=== PATIENT | male | born 1995 | race Caucasian/White ===

== ENCOUNTER 2017-03-24 19:13 | Emergency (ER) | payer BC, OTHER ==
[~2017-03-24] VITALS: Ht 180.3 cm; Wt 74.0 kg
[~2017-03-24 19:13] MED LIST: [UNRECOGNIZED DRUG - CODE] PO
[2017-03-24 19:23] VITALS: TEMP 37; Ht 180.3 cm; Wt 74.0 kg
[2017-03-24] MEDS ORDERED: ONDANSETRON INJ 2 MG/ML 2 ML VIAL IV STA (19:26)
[2017-03-24] MEDS ORDERED: SODIUM CHLORIDE 0.9% 1000ML 1,000 ML IV STA (19:26)
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
[2017-03-24] MEDS ORDERED: MoRPHine SULFATE 4 MG/ML 1 ML CARP\\VIAL IV PRN (19:30)
[2017-03-24 19:41] LABS: BASO % 0.3 %; BASO ABS # 0.03 K/uL (0-0.2); EOS % 0.3 %; EOS ABS # 0.03 K/uL (0-0.5); HEMATOCRIT 48.6 % (42-52); HEMOGLOBIN 17.4 g/dL (14.0-18.0); IG# 0.03 K/uL (0.00-0.02); LYMPH % 19.7 %; LYMPH ABS # 1.73 K/uL (1.2-3.4); MEAN CELL VOLUME 85.9 fL (80-100); MEAN CORPUSCULAR HEMOGLOBIN 30.7 pg (25-34); MEAN CORPUSCULAR HGB CONC 35.8 g/dl (32-36); MEAN PLATELET VOLUME 11.4 fL (7.4-10.4); MONO % 8.3 %; MONO ABS # 0.73 K/uL (0.11-0.59); NEUT % 71.1 %; NEUT ABS # 6.21 K/uL (1.4-6.5); PLATELET COUNT 240 K/uL (130-400); RED CELL DISTRIBUTION WIDTH CV 12.2 % (11.5-14.5); WHITE BLOOD COUNT 8.76 K/uL (4.8-10.8)
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
[2017-03-24 20:18] LABS: ALBUMIN 4.8 gm/dl (3.4-5.0); ALT/SGPT 41 U/L (12-78); AST/SGOT 20 U/L (15-37); BLOOD UREA NITROGEN 15 mg/dl (7-18); CALCIUM 9.7 mg/dl (8.5-10.1); CARBON DIOXIDE 28 mmol/L (21-32); CREATININE 0.97 mg/dl (0.60-1.40); GLUCOSE 88 mg/dl (70-99); LIPASE 72 U/L (73-393); POTASSIUM 3.6 mmol/L (3.5-5.1); SODIUM 137 mmol/L (136-145)
[2017-03-24 20:20] LABS: ALKALINE PHOSPHATASE 75 U/L (45-117); TOTAL PROTEIN 8.8 gm/dl (6.4-8.2)
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
[2017-03-24] MEDS ORDERED: OXYC1TAB3 PO (21:00)
[2017-03-24] MEDS ORDERED: OXYCODONE IR HOME PACK PO ONE (21:00)
[2017-03-24 21:21] VITALS: BP 148/97; PULSE 77; O2SAT 97
[2017-03-25 01:35] LABS: ISTAT IONIZED CALCIUM 1.25 mmol/l; ISTAT POTASSIUM 3.6 mEq/L (3.3-5.0)
== END 2017-03-24 21:23 | disposition home or self-care (01) ==
LOC: EDBD 19:13 → C.EDC 19:15
DX: S16.1XXA Strain of muscle, fascia and tendon at neck level, initial encounter (principal); S80.01XA Contusion of right knee, initial encounter; S93.401A Sprain of unspecified ligament of right ankle, initial encounter; S39.81XA Other specified injuries of abdomen, initial encounter; V53.5XXA Driver of pick-up truck or van injured in collision with car, pick-up truck or van in traffic accident, initial encounter

== ENCOUNTER 2017-11-09 23:09 | Emergency (ER) | payer OTHER ==
[~2017-11-09] VITALS: Ht 177.8 cm; Wt 77.2 kg
[2017-11-09 23:12] VITALS: TEMP 36.7; Ht 177.8 cm; Wt 77.2 kg
[2017-11-09] MEDS ORDERED: DiphenhydrAMINE HCL 50 MG/ML VIAL IV STA (23:20)
[2017-11-09] MEDS ORDERED: RANITIDINE HCL 50 MG/100 ML D5W IV STA (23:20)
[2017-11-09] MEDS ORDERED: METHYLPREDNISOLONE 125 MG VIAL IV STA (23:20)
[2017-11-09] MEDS ORDERED: SODIUM CHLORIDE 0.9% 1000ML 1,000 ML IV ONE (23:30)
[2017-11-09 23:45] VITALS: O2SAT 97
[2017-11-09 23:48] LABS: BASO % 0.2 %; BASO ABS # 0.02 K/uL (0-0.2); EOS % 1.4 %; EOS ABS # 0.12 K/uL (0-0.5); HEMATOCRIT 44.8 % (42-52); HEMOGLOBIN 15.8 g/dL (14.0-18.0); IG# 0.01 K/uL (0.00-0.02); LYMPH % 21.1 %; LYMPH ABS # 1.82 K/uL (1.2-3.4); MEAN CELL VOLUME 86.3 fL (80-100); MEAN CORPUSCULAR HEMOGLOBIN 30.4 pg (25-34); MEAN CORPUSCULAR HGB CONC 35.3 g/dl (32-36); MEAN PLATELET VOLUME 11.2 fL (7.4-10.4); MONO % 11.1 %; MONO ABS # 0.96 K/uL (0.11-0.59); NEUT % 66.1 %; NEUT ABS # 5.69 K/uL (1.4-6.5); PLATELET COUNT 215 K/uL (130-400); RED CELL DISTRIBUTION WIDTH CV 12.1 % (11.5-14.5); RED CELL DISTRIBUTION WIDTH SD 38.1 fL (36.4-46.3); WHITE BLOOD COUNT 8.62 K/uL (4.8-10.8)
[2017-11-10 00:17] LABS: ALBUMIN 4.1 gm/dl (3.4-5.0); CALCIUM 9.4 mg/dl (8.5-10.1); CREATININE 0.96 mg/dl (0.60-1.40); POTASSIUM 3.9 mmol/L (3.5-5.1); TOTAL PROTEIN 7.4 gm/dl (6.4-8.2)
[2017-11-10] MEDS ORDERED: PRED50TA PO (01:17)
[2017-11-10] MEDS ORDERED: EPP3/2 INJ (01:17)
[2017-11-10 01:42] VITALS: BP 135/71; PULSE 60; O2SAT 99
--- NOTE | 2017-11-10 06:54 | EMERGENCY ROOM VISIT NOTE ---
History First contact with patient: 23:16 Chief Complaint: FACIAL PAIN/INJURY Stated Complaint: HEAD HURTS FACE PUFFED UP BLURRY VISION History of Present Illness The patient is a 22 year old male who presents to the Emergency Room with complaints of allergic reaction symptoms after being stung by a group of hornets about 8 hours ago. The patient states that he went into his shed at home, and evidently there was a nest got disturbed. The patient believes that he was stung multiple times primarily around his neck. He did take 3 Benadryl after the initial injury, and this seemed to help his symptoms. He states that tonight his symptoms have returned, and he is now having swelling around. He does not have difficulty breathing, chest pain, or abdominal pain. The patient has had similar reactions to a hornet sting in the past. He considers himself usually healthy and is without additional complaints. He rates his discomfort a 6/10. Review of Systems More than 10 systems were reviewed and otherwise negative with the exception of history of present illness. Past Medical/Surgical History Medical Problems: (1) No Known Active Medical Problems Family History Patient reports no known family medical history. Social History Smoking Status: Never Smoker Marital Status: single Housing Status: lives with family Occupation Status: student Current/Historical Medications Scheduled Prednisone (Prednisone), 50 MG PO DAILY Scheduled PRN Epinephrine (Epipen 2-Chapo), 1 PEN INJ DIRECTED PRN for Allergic Reaction Physical Exam Vital Signs Date Time Temp Pulse Resp B/P (MAP) Pulse Ox O2 Delivery O2 Flow Rate FiO2 11/10/17 01:42 60 16 135/71 99 Room Air 11/10/17 00:57 62 16 137/75 99 Room Air 11/09/17 23:52 65 11/09/17 23:45 97 Room Air 11/09/17 23:12 36.7 77 16 151/81 99 Room Air Physical Exam VITALS: Vitals are noted on the nurse's note and reviewed by myself. Vital signs stable. GENERAL: Well-developed, well-nourished, white male, who appears to be experiencing allergic reaction. He is able to speak without difficulty. HEAD: left-sided facial swelling is appreciated as well as left periorbital swelling EARS: External ear normal. External auditory canals clear, tympanic membranes pearly dacosta without erythema or effusion bilaterally. EYES: Pupils equal round and reactive to light and accommodation. Conjunctivae without injection, sclerae without icterus. Extraocular movements intact. NOSE: Patent, turbinates without inflammation or discharge. MOUTH: Mucous membranes moist. Tonsils are not enlarged. Pharynx without erythema, blood, or exudate. Uvula midline. Airway patent. NECK: Supple without nuchal rigidity. No lymphadenopathy. No thyromegaly. Cervical spine is nontender. HEART: Regular rate and rhythm without murmurs gallops or rubs. LUNGS: Clear to auscultation bilaterally without wheezes, rales or rhonchi. No retractions or accessory muscle use. ABDOMEN: Positive normal bowel sounds x 4. Soft, nontender, without masses or organomegaly. No guarding or rebound tenderness. MUSCULOSKELETAL: No muscle atrophy, erythema, or edema noted. Full range of motion in all extremities Medical Decision & Procedures Laboratory Results 11/09/17 23:30 Red Blood Count 5.19, Mean Corpuscular Volume 86.3, Mean Corpuscular Hemoglobin 30.4, Mean Corpuscular Hemoglobin Concent 35.3, Mean Platelet Volume 11.2, Neutrophils (%) (Auto) 66.1, Lymphocytes (%) (Auto) 21.1, Monocytes (%) (Auto) 11.1, Eosinophils (%) (Auto) 1.4, Basophils (%) (Auto) 0.2, Neutrophils # (Auto ) 5.69, Lymphocytes # (Auto) 1.82, Monocytes # (Auto) 0.96, Eosinophils # (Auto ) 0.12, Basophils # (Auto) 0.02 11/09/17 23:30 Test 11/09/17 23:30 White Blood Count 8.62 K/uL (4.8-10.8) Red Blood Count 5.19 M/uL (4.7-6.1) Hemoglobin 15.8 g/dL (14.0-18.0) Hematocrit 44.8 % (42-52) Mean Corpuscular Volume 86.3 fL (80-100) Mean Corpuscular Hemoglobin 30.4 pg (25-34) Mean Corpuscular Hemoglobin Concent 35.3 g/dl (32-36) Platelet Count 215 K/uL (130-400) Mean Platelet Volume 11.2 fL (7.4-10.4) Neutrophils (%) (Auto) 66.1 % Lymphocytes (%) (Auto) 21.1 % Monocytes (%) (Auto) 11.1 % Eosinophils (%) (Auto) 1.4 % Basophils (%) (Auto) 0.2 % Neutrophils # (Auto) 5.69 K/uL (1.4-6.5) Lymphocytes # (Auto) 1.82 K/uL (1.2-3.4) Monocytes # (Auto) 0.96 K/uL (0.11-0.59) Eosinophils # (Auto) 0.12 K/uL (0-0.5) Basophils # (Auto) 0.02 K/uL (0-0.2) RDW Standard Deviation 38.1 fL (36.4-46.3) RDW Coefficient of Variation 12.1 % (11.5-14.5) Immature Granulocyte % (Auto) 0.1 % Immature Granulocyte # (Auto) 0.01 K/uL (0.00-0.02) Anion Gap 9.0 mmol/L (3-11) Est Creatinine Clear Calc Drug Dose 126.7 ml/min Estimated GFR () 131.4 Estimated GFR (Non- 113.3 BUN/Creatinine Ratio 15.2 (10-20) Calcium Level 9.4 mg/dl (8.5-10.1) Total Bilirubin 0.3 mg/dl (0.2-1) Aspartate Amino Transf (AST/SGOT) 14 U/L (15-37) Alanine Aminotransferase (ALT/SGPT) 23 U/L (12-78) Alkaline Phosphatase 57 U/L (45-117) Total Protein 7.4 gm/dl (6.4-8.2) Albumin 4.1 gm/dl (3.4-5.0) Globulin 3.3 gm/dl (2.5-4.0) Albumin/Globulin Ratio 1.2 (0.9-2) Chemistry Specimen Hemolysis Medications Administered Medications (Trade) Dose Ordered Sig/Danielle Route Start Time Stop Time Status Last Admin Dose Admin Diphenhydramine HCl (Benadryl Inj) 50 mg NOW STAT IV 11/09/17 23:20 11/09/17 23:22 DC 11/09/17 23:36 50 MG Methylprednisolone Sodium Succinate (Solu-Medrol IV) 125 mg NOW STAT IV 11/09/17 23:20 11/09/17 23:22 DC 11/09/17 23:38 125 MG Ranitidine HCl (zANTac IV) 50 mg NOW STAT IV 11/09/17 23:20 11/09/17 23:22 DC 11/09/17 23:43 50 MG Sodium Chloride 1,000 ml @ 999 mls/hr Q1H1M ONCE IV 11/09/17 23:30 11/10/17 00:30 DC 11/09/17 23:35 999 MLS/HR ED Course Physical exam and history were performed. Nursing notes, EMR, and Medication List were personally reviewed. Patient appears to have mild to moderate left-sided periorbital swelling after being stung by a hornet earlier today. The patient appears to be having allergic reaction. He is not an acute anaphylaxis based on his examination. IV access was established and basic labs were obtained. The patient was given IV Benadryl, IV Solu-Medrol, and IV Zantac. The patient was reevaluated multiple times throughout the course of his stay. His blood work is as above and was reviewed. He does not have a significantly elevated white blood cell count, gross anemia, bandemia, or significant electrolyte imbalance. His remaining labs are nondiagnostic. The patient had very persistent and slow improvement of his swelling. He was able to rest very comfortably in his ER bed, and certainly did not have any evolution of his symptoms. Clinically I suspect that he is experiencing an allergic reaction. Over the course of a few hours the patient felt significantly improved. He is felt to be well for discharge home. I will have him continue Benadryl and Zantac at home. He will be given prescriptions for prednisone and an EpiPen. He is to follow with his family doctor in the next few days for recheck. He was otherwise invited back to the ER with any new, worsening, or concerning symptoms. The chart was completed utilizing [employer] Speech Voice Recognition Software. Grammatical errors, random word insertions, pronoun errors, and incomplete sentences are an occasional consequence of this system due to software limitations, ambient noise, and hardware issues. Any formal questions or concerns about the content, text, or information contained within the body of this dictation should be directly addressed to the provider for clarification. . Medical Decision Differential diagnosis: Etiologies such as allergic reaction, anaphylaxis, urticaria, Mason-Sam syndrome, toxic epidermal necrolysis, erythema multiforme, cellulitis, as well as others were entertained. Impression Primary Impression: Allergic reaction Departure Information Dispostion Home / Self-Care Condition GOOD Prescriptions Epinephrine (EPIPEN 2-CHAPO) 0.3 Mg Inj 1 PEN INJ DIRECTED Y for Allergic Reaction, #1 PKT 1 Refill Prov: Gurdeep Francis PA-C 11/10/17 Prednisone (Prednisone) 50 Mg Tab 50 MG PO DAILY for 4 Days, #4 TAB Prov: Gurdeep Francis PA-C 11/10/17 Forms HOME CARE DOCUMENTATION FORM, IMPORTANT VISIT INFORMATION Patient Instructions [facility] Additional Instructions You were seen and evaluated today on an emergency basis only. This is not a substitute for, or an effort to provide, complete comprehensive medical care. It is not possible to recognize and treat all injuries or illnesses in a single emergency department visit. For this reason it is recommended that you followup with your primary care physician this week with any ongoing or persisting symptoms. Use [id number] Benadryl 25-50 mg every 6 hours as needed. Continue [id number] Zantac 150 mg daily Take prednisone as prescribed Use the EpiPen with any severe allergic reaction symptoms in the future. If you need to use the EpiPen please seek immediate medical attention afterwards You are welcome to return to the emergency department anytime with new, worsening, or concerning symptoms.
== END 2017-11-10 01:49 | disposition home or self-care (01) ==
LOC: C.EDB 23:11 → C.EDA 11-10 01:49
DX: T63.451A Toxic effect of venom of hornets, accidental (unintentional), initial encounter (principal)

== ENCOUNTER 2025-03-13 17:51 | Observation (INO) ==
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
[2025-03-13] MEDS: ONDANSETRON INJ 2 MG/ML 2 ML VIAL IV STA (18:20)
[2025-03-13] MEDS: SODIUM CHLORIDE 0.9% 1,000 ML IV SCH (18:21)
[2025-03-13] MEDS: ACETAMINOPHEN 1,000 MG/100 ML VIAL IV STA (18:21)
[2025-03-13 18:44] LABS: Hematocrit (blood only) 45.0 % (42.0-52.0); Hemoglobin 15.7 g/dL (14.0-18.0); Immature Granulocytes # (auto) 0.02 K/uL (0.01-0.20); Immature Granulocytes % (auto) 0.3 %; Mean Corpuscular Hemoglobin 30.1 pg (25.0-34.0); Mean Corpuscular Volume 86.2 fL (80.0-100.0); Platelet Count 204 K/uL (130-400); RDW Standard Deviation 37.8 fL (36.4-46.3); Red Blood Count 5.22 M/uL (4.70-6.10); White Blood Count 7.90 K/ul (4.8-10.8)
--- NOTE | 2025-03-13 18:49 | XRay Report ---
Chest radiograph, one view History: Fever Comparison: None Findings: Single AP view of the chest performed. No focal consolidation or pleural effusion. No pneumothorax. The cardiomediastinal silhouette is within normal limits. Normal pulmonary vascularity. No evidence for lymphadenopathy. No visualized bony or soft tissue abnormality. Impression: Normal chest radiograph Electronically signed by Jay Prabhakar 03-13-2025 6:48 PM
[2025-03-13 19:11] LABS: Alanine Aminotransferase 25.0 U/L (7-52); Albumin Globulin Ratio 1.7 (0.9-2); Albumin Level 4.7 gm/dl (3.4-5.0); Alkaline Phosphatase 53.0 U/L (34-104); Anion Gap 7.0 (3-11); Bilirubin,Total 0.5 mg/dl (0.2-1.0); Blood Urea Nitrogen 11.0 mg/dl (6-23); Calcium 9.4 mg/dl (8.6-10.3); Carbon Dioxide 27.0 mmol/L (21-32); Chloride 102.0 mmol/L (98-107); Creatinine Clr Calc Pharmacy 112.2 ml/min; Globulin 2.7 gm/dl (2.5-4.0); Glucose 112.0 mg/dl (70-99(Fasting)); Potassium 3.7 mmol/L (3.5-5.1); Sodium 136.0 mmol/L (136-145); Total Protein 7.4 gm/dl (6.0-8.3)
[2025-03-13] MEDS: KETOROLAC TROMETHAMINE 15 MG/ML VIAL IV ONE (20:14)
[2025-03-13] MEDS: SODIUM CHLORIDE 0.9% 1,000 ML IV ONE (20:17)
[2025-03-13] MEDS: ALBUT/IPRATROP 3MG/0.5MG NEB 3 ML VIAL NEB STA (20:28)
[2025-03-13] MEDS: dexAMETHasone**PF** 10 MG/ML VIAL IV ONE (20:28)
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
[2025-03-13] MEDS ORDERED: POLYETHYLENE (MIRALAX) 17 GM PACK PO PRN (21:41)
[2025-03-13] MEDS ORDERED: ONDANSETRON INJ 2 MG/ML 2 ML VIAL IV PRN (21:41)
[2025-03-13] MEDS ORDERED: CHLORASEPTIC (PHENOL) 1.4% SOLN 180 ML BTL MT PRN (21:44)
[2025-03-13] MEDS: LACTATED RINGER'S 1,000 ML IV SCH (21:51)
[2025-03-13] MEDS ORDERED: MELATONIN 3 MG TAB PO PRN (22:07)
[2025-03-14] MEDS: ACETAMINOPHEN 325 MG TAB PO PRN (02:28)
[2025-03-14] MEDS: LEVALBUTEROL 1.25 MG/3 ML NEB NEB SCH (07:08)
[2025-03-14] MEDS: OSELTAMIVIR PHOSPHATE 75 MG CAP PO SCH (09:20)
--- NOTE | 2025-03-14 09:51 | Electrocardiogram Report ---
Test Reason : Blood Pressure : */* mmHG Vent. Rate : 84 BPM Atrial Rate : 84 BPM P-R Int : 160 ms QRS Dur : 90 ms QT Int : 354 ms P-R-T Axes : 74 71 45 degrees QTcB Int : 418 ms Normal sinus rhythm Normal ECG No previous ECGs available Confirmed by Jay Richardson ([id number]) on 03/14/2025 9:51:17 AM Referred By: REFERRED SELF Confirmed By: Jay Richardson
--- NOTE | 2025-03-14 10:06 | Discharge Summary ---
Discharge Summary Date of Service March 14, 2025 Principal Dx & Hospital Course #1 = Principal Diagnosis (1) Influenza A: (2) Tachycardia: Plan 30-year-old male no significant PMHx presenting for worsening headache and flulike symptoms. Evaluated in ED on 03/12/2025, diagnosed with flu A and discharged home but presents today with worsening symptoms and persistent tachycardia on 03/13. #Influenza A/Tachycardia Symptoms starting approximately 3 weeks ago. Now 03/14 patient reports he needs to return home as his & children are also sick Main concern is his tachycardia with weakness, suspected due to dehydration and decreased intake over the past 3 weeks. - tachycardia resolved after IVF CBC/CMP stable. Lactate WNL; CXR neg; EKG reviewed; Biofire + for Flu A Tamiflu started 03/14 Sent home w/ zofran prn for nausea/vomiting & albuterol inhaler for SOB/wheezing. (pt reports breathing treatments were helpful) Discharged home 03/14. Admission HPI Per Admitting Provider 30-year-old male no significant PMHx presenting for worsening headache and flulike symptoms. Evaluated in ED on 03/12/2025, diagnosed with flu A and discharged home but presents today with worsening symptoms and persistent tachycardia. Patient states that he feels "like shit." States that this has been ongoing for approximately 3 weeks and has just been worsening over that time states that he moved into his own house approximately 3 weeks ago and notes that there was lead in his water so he has to get this fixed, was wondering if this had any impact on his symptoms. He states that over the past 2 to 3 weeks he has been unable to eat a full meal, only eating small amounts of food over that time. He states that he is down approximately "20 pounds." Also states that his sleep has been very poor, stating that throughout the whole week he will maybe get 8 to 10 hours of restful sleep and that this has been ongoing. He has extreme fatigue, stating that he falls asleep even after driving and then will sleep in the parking lot for approximately 30 minutes before being able to continue with his daily tasks. 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 Also states before coming to the hospital, he had to stop 3 times because he felt so tired and he would lay down in his truck for a few minutes and then get back up and continue to drive. States that he also has just felt some brain fog since being sick. He just feels that he has no energy, very fatigued, and did have a fall in the shower the day [employer] because he felt weak. He has no history of seizures, but his mother does have a history of seizure. He has not hit his head or injured any other part of his body. He states that his symptoms mainly are sore throat, nasal congestion, and cough that is mostly nonproductive. He states anytime that he has oral intake (food or water), he will gag and vomited back up. He has been unable to tolerate oral intake. There is a lot of mucus in his throat per the patient. He states that his stool is loose in consistency, but that he is only having 1 BM per day where he normally has 3 BMs per day. Also accounts this to not having a lot of oral intake in terms of food. He is not sure if he was exposed to anyone with the flu. He does feel feverish. He was unable to start the medications that were prescribed him from the ED the night [employer] because he was unable to get to [facility] secondary to fatigue. He is slightly SOB with some chest pain from coughing, also with some dizziness when changing positions. Tries to drink water, but vomits it back up. Did not have his influenza vaccine. Denying abdominal pain, numbness/tingling, LUTS, LOC, or additional pain. ED evaluation reveals CBC without leukocytosis or leukopenia, stable H&H and platelets; CMP grossly unremarkable with exception of glucose 112; lactate 1.4; CXR WNL.; Provided with 2L NSS, Zofran 4 mg IV, ketorolac 15 mg IV, dexamethasone 10 mg IV, albuterol 3 mL neb, acetaminophen 1 g IV, and Hycodan 5 mL po in ED. Please see Dr. Tilley attestation for adjustments/additions to treatment plan. Discharge Exam General: NAD, VS: BP 120/71; P75; T36.6C; R15 Resp: normal respiratory effort, lungs clear to auscultation CV: RRR, no murmur Extremities: Moves all extremities, no edema Neuro: A&O x3, Skin: intact, no lesions noted Discharge Plan Discharge Items Patient Disposition: Home - Self-Care Reason For Visit: FLU A, TACHYCARDIA Discharge Diagnosis: Influenza A Activity: Resume your previous activity Non-emergency contact: Primary Care Provider Call non-emergency contact if: you have any medication questions, your symptoms worsen and you have a fever Follow-up/Referrals: PCP,NO [Primary Care Provider] - Diet: Regular Addtl Attending Provider Instructions: Mr. Staples, You were recently hospitalized for flu-like symptoms. You were found to have Influenza A. This has been treated supportively with IV fluids, anti-nausea medications, and an anti-viral called Tamiflu. Medications: Your medication list has been reviewed and reconciled upon discharge to ensure accuracy and continuity of care. An updated list of all your medications is included with your hospital discharge paperwork. Please review this list closely, and make note of any changes. Please take Tamiflu twice daily for 5 days. Next dose is this evening, 03/14. Please use Zofran every 6 hours as needed for nausea and vomiting. Please use the albuterol inhaler every 6 hours as needed for shortness of breath or wheezing. Please stop taking the Augmentin and Prednisone as alternative therapy (Tamiflu) was prescribed on discharge. Take your medications as instructed; do not skip a dose of your medicines. Make sure all of your doctors know every medicine you are taking (including fyaw-wrq-vcnpbar medicines, vitamins, and supplements). Call your primary care provider before taking any new medicines (including over- the-counter medicines, vitamins, and supplements), because some of these may interact with your current medications, or may make your symptoms worse. Tell your primary care provider if you cannot afford your medications. Activity: You can do normal everyday activities as your body allows. Take rest breaks if you feel tired. Do not overexert. Stop activity if you have pain, shortness of breath or feel dizzy. Follow-up appointments: Make an appointment with your primary care physician within one week of discharge. A copy of this summary will be sent to them. Every time you see your primary care physician, or any other doctor, bring your medication list, and a list of questions. CONTACT YOUR PRIMARY CARE PROVIDER if you experience any of the following: Shortness of breath or difficulty breathing Fevers or chills Feeling tired with normal activity or experiencing dizziness or fainting Difficulty following your treatment plan, or difficulty taking medications CALL 911 OR GO TO THE EMERGENCY DEPARTMENT if you experience any of the following: Severe abdominal pain or nausea/vomiting Severe chest pain, or chest pain that radiates (moves) to your jaw or arm Sudden, severe shortness of breath or difficulty breathing Thank you for allowing us to participate in your care. Pending Studies at Discharge: No Stand-Alone Forms: My [facility], Smoking Cessation Medications and DC Order Prescriptions: New oseltamivir [Tamiflu] 75 mg Capsule 75 mg PO BID Qty: 9 0RF ondansetron 4 mg tablet,disintegrating 4 mg PO Q6H PRN (Reason: nausea and vomiting) Qty: 30 0RF albuterol sulfate 90 mcg/actuation aerosol powdr breath activated 2 inh inhalation Q6H PRN (Reason: shortness of breath or wheezing) Qty: 1 0RF Continued benzonatate 200 mg capsule 200 mg PO TID PRN (Reason: cough) Qty: 15 0RF Discontinued amoxicillin-pot clavulanate 875-125 mg tablet 1 tab PO BID Qty: 20 0RF prednisone 50 mg tablet 50 mg PO DAILY 5 Days Qty: 5 0RF Discharge Orders: Discharge Order (Routine); Ordered 03/14/25 Ordered By: Sue Grier Admission Data Admit Date/Time: 03/13/25 20:59 Attending Provider: Jay Michaels Admit Provider: Link Tilley Primary Care Provider: PCP,NO Other Providers: Link Tilley Other Interventions: Discharge Summary Assessment (RN) Last Done: 03/14/25 10:07 Hospital Stay Data Consultations 03/13/25 20:00 ED Decision to Admit Stat Pending Results Patient Have Any Pending Studies at Discharge: No Discharge Instructions Given to Patient (Per Discharging Provider) Mr. Staples, You were recently hospitalized for flu-like symptoms. You were found to have Influenza A. This has been treated supportively with IV fluids, anti-nausea medications, and an anti-viral called Tamiflu. Medications: Your medication list has been reviewed and reconciled upon discharge to ensure accuracy and continuity of care. An updated list of all your medications is included with your hospital discharge paperwork. Please review this list closely, and make note of any changes. Please take Tamiflu twice daily for 5 days. Next dose is this evening, 03/14. Please use Zofran every 6 hours as needed for nausea and vomiting. Please use the albuterol inhaler every 6 hours as needed for shortness of breath or wheezing. Please stop taking the Augmentin and Prednisone as alternative therapy (Tamiflu) was prescribed on discharge. Take your medications as instructed; do not skip a dose of your medicines. Make sure all of your doctors know every medicine you are taking (including fzil-rgh-cganjfx medicines, vitamins, and supplements). Call your primary care provider before taking any new medicines (including over- the-counter medicines, vitamins, and supplements), because some of these may interact with your current medications, or may make your symptoms worse. Tell your primary care provider if you cannot afford your medications. Activity: You can do normal everyday activities as your body allows. Take rest breaks if you feel tired. Do not overexert. Stop activity if you have pain, shortness of breath or feel dizzy. Follow-up appointments: Make an appointment with your primary care physician within one week of discharge. A copy of this summary will be sent to them. Every time you see your primary care physician, or any other doctor, bring your medication list, and a list of questions. CONTACT YOUR PRIMARY CARE PROVIDER if you experience any of the following: Shortness of breath or difficulty breathing Fevers or chills Feeling tired with normal activity or experiencing dizziness or fainting Difficulty following your treatment plan, or difficulty taking medications CALL 911 OR GO TO THE EMERGENCY DEPARTMENT if you experience any of the followin g: Severe abdominal pain or nausea/vomiting Severe chest pain, or chest pain that radiates (moves) to your jaw or arm Sudden, severe shortness of breath or difficulty breathing Thank you for allowing us to participate in your care. Total Time Total Time Spent Total Time Spent (In Minutes): 35 Total Time Includes: Examination of the Patient, Discharge Planning and Medication Reconciliation Coding Level of Care Code 59973 INP/OBS DISCH >30 MIN Diagnoses Influenza A J10.1 Tachycardia R00.0
== END 2025-03-14 10:30 | disposition home or self-care (01) ==
LOC: EDINP 17:51 → ED 17:51 → SUATTDRO 20:59 → EDINP 21:42
DX: J10.1 Influenza due to other identified influenza virus with other respiratory manifestations; R00.0 Tachycardia, unspecified; F17.220 Nicotine dependence, chewing tobacco, uncomplicated